=== PATIENT | male | born 1935 | race Caucasian/White ===

== ENCOUNTER 2017-09-03 07:57 | Emergency (ER) | payer OTHER ==
[~2017-09-03] VITALS: Ht 177.8 cm; Wt 77.1 kg
== END 2017-09-03 09:33 | disposition home or self-care (01) ==
LOC: ER 07:57
DX: H61.21 Impacted cerumen, right ear (principal)

== ENCOUNTER 2018-11-04 00:28 | Emergency (ER) | payer OTHER ==
[~2018-11-04] VITALS: Ht 177.8 cm; Wt 77.1 kg
== END 2018-11-04 21:01 | disposition home or self-care (01) ==
LOC: ER 00:28
DX: K52.9 Noninfective gastroenteritis and colitis, unspecified (principal); E86.0 Dehydration; R11.2 Nausea with vomiting, unspecified; D72.828 Other elevated white blood cell count

== ENCOUNTER 2018-12-03 10:01 | Emergency (ER) | payer OTHER ==
[~2018-12-03] VITALS: Ht 177.8 cm; Wt 86.2 kg
== END 2018-12-03 16:13 | disposition home or self-care (01) ==
LOC: ER 10:01
DX: R06.02 Shortness of breath (principal)

== ENCOUNTER 2018-12-12 13:01 | Outpatient (CLI) | payer OTHER | END 2018-12-12 13:03 | disposition home or self-care (01) | LOC: TOM 13:01 | DX: R06.02 Shortness of breath (principal) ==

== ENCOUNTER → 2020-02-02 | Emergency (ER) | payer OTHER | END | disposition left against medical advice (07) | LOC: ER 08:22 | DX: Z53.20 Procedure and treatment not carried out because of patient's decision for unspecified reasons (principal) ==